=== PATIENT | female | born 1960 | race Caucasian/White ===

== ENCOUNTER 2017-05-10 15:15 | Inpatient (IN) | payer MEDICAID ==
[2017-05-10 15:54] LABS: ADD MAN DIFF? NO
[2017-05-10 15:56] LABS: WHITE BLOOD COUNT 4.9 10^3/ul (4.8-10.8)
[2017-05-10 15:56] LABS: BASOPHILS % 0.2 % (0.0-2.0); EOSINOPHILS # 0.1 10^3/ul (0.0-0.5); EOSINOPHILS % 1.8 % (0.0-7.0); HEMATOCRIT 38.2 % (37.0-47.0); HEMOGLOBIN 12.8 g/dl (12.0-16.0); LYMPHOCYTES # 2.3 10^3/ul (0.8-2.9); LYMPHOCYTES % 46.8 % (15.0-51.0); MEAN CORPUSCULAR HEMOGLOBIN 31.1 pg (29.0-33.0); MEAN CORPUSCULAR HGB CONC 33.5 g/dl (32.0-37.0); MEAN CORPUSCULAR VOLUME 92.7 fl (82.0-101.0); MEAN PLATELET VOLUME 10.4 fl (7.4-10.4); MONOCYTE # 0.3 10^3/ul (0.3-0.9); MONOCYTES % 6.7 % (0.0-11.0); NEUTROPHIL # 2.2 10^3/ul (1.6-7.5); NEUTROPHILS % 44.3 % (39.0-77.0); PLATELET COUNT 193 10^3/UL (140-415); RED BLOOD COUNT 4.12 10^6/ul (4.20-5.40)
[2017-05-10] MEDS: NITROGLYCERIN 2% 1 GM OINT PKT TD (16:04)
[2017-05-10] MEDS: morphine 4 MG/ML VIAL IV (16:04)
[2017-05-10] MEDS: ONDANSETRON 4 MG INJ IV (16:04)
[2017-05-10 16:54] LABS: ANION GAP 15 (8-16); BLOOD UREA NITROGEN 10 mg/dl (7-20); CALCIUM 9.5 mg/dl (8.4-10.2); CARBON DIOXIDE 25 mmol/L (21-31); CHLORIDE 106 mmol/L (97-110); CREATININE 0.92 mg/dl (0.44-1.00); GLUCOSE 94 mg/dl (70-220); POTASSIUM 3.8 mmol/L (3.5-5.1); SODIUM 142 mmol/L (135-144)
[2017-05-10 17:06] LABS: TROPONIN-I 0.055 ng/ml (0.00-0.12)
[2017-05-10] MEDS ORDERED: ONDANSETRON 4 MG INJ IV ×2 (18:30→20:00)
[2017-05-10] MEDS ORDERED: NACL 0.9% 3 ML SYG IV (20:00)
[2017-05-10 22:32] LABS: CREATINE KINASE 79 IU/L (23-200)
[2017-05-10 22:45] LABS: CK INDEX 0.6; CK-MB 0.51 ng/ml (0.0-2.4); TROPONIN-I 0.053 ng/ml (0.00-0.12)
[2017-05-10] MEDS: PANTOPRAZOLE (EC) 40 MG TAB PO (23:48)
[2017-05-10] MEDS: ACETAMINOPHEN 325 MG TAB PO (23:51)
[2017-05-11] MEDS: SOD CHLORIDE 0.9% 500 ML IV (04:30)
[2017-05-11 04:34] LABS: ADD MAN DIFF? NO
[2017-05-11 04:39] LABS: WHITE BLOOD COUNT 4.7 10^3/ul (4.8-10.8)
[2017-05-11 04:39] LABS: BASOPHILS % 0.4 % (0.0-2.0); EOSINOPHILS # 0.1 10^3/ul (0.0-0.5); EOSINOPHILS % 2.1 % (0.0-7.0); HEMATOCRIT 36.8 % (37.0-47.0); HEMOGLOBIN 12.3 g/dl (12.0-16.0); LYMPHOCYTES # 2.2 10^3/ul (0.8-2.9); MEAN CORPUSCULAR HGB CONC 33.4 g/dl (32.0-37.0); MEAN CORPUSCULAR VOLUME 92.7 fl (82.0-101.0); MEAN PLATELET VOLUME 10.6 fl (7.4-10.4); MONOCYTE # 0.3 10^3/ul (0.3-0.9); NEUTROPHILS % 43.1 % (39.0-77.0); PLATELET COUNT 186 10^3/UL (140-415); RED BLOOD COUNT 3.97 10^6/ul (4.20-5.40); RED CELL DISTRIBUTION WIDTH 14.2 % (11.5-14.5)
[2017-05-11 05:02] LABS: CREATINE KINASE 72 IU/L (23-200)
[2017-05-11 05:13] LABS: ALANINE AMINOTRANSFERASE 49 IU/L (13-69); ALBUMIN 4.1 g/dl (3.3-4.9); ALBUMIN/GLOBULIN RATIO 1.32; ALKALINE PHOSPHATASE 77 IU/L (42-121); ANION GAP 15 (8-16); ASPARTATE AMINO TRANSFERASE 48 IU/L (15-46); BILIRUBIN,INDIRECT 0.6 mg/dl (0-1.1); BILIRUBIN,TOTAL 0.6 mg/dl (0.2-1.3); BLOOD UREA NITROGEN 11 mg/dl (7-20); CALCIUM 9.1 mg/dl (8.4-10.2); CARBON DIOXIDE 27 mmol/L (21-31); CHLORIDE 105 mmol/L (97-110); CHOL/HDL RATIO 5.3 RATIO; CHOLESTEROL 166 mg/dl (100-200); CK INDEX 0.8; CK-MB 0.54 ng/ml (0.0-2.4); CREATININE 0.89 mg/dl (0.44-1.00); GLUCOSE 95 mg/dl (70-220); HDL CHOLESTEROL 31 mg/dl (37-92); LDL CHOLESTEROL,CALCULATED 119 mg/dl; MAGNESIUM 2.2 mg/dl (1.7-2.5); POTASSIUM 3.7 mmol/L (3.5-5.1); SODIUM 143 mmol/L (135-144); TOTAL PROTEIN 7.2 g/dl (6.1-8.1); TRIGLYCERIDES 79 mg/dl (0-149); TROPONIN-I 0.061 ng/ml (0.00-0.12)
[2017-05-11] MEDS: KETOROLAC 30 MG INJ IV (05:53)
[2017-05-11] MEDS: PANTOPRAZOLE (EC) 40 MG TAB PO ×2 (05:53→17:50)
[2017-05-11 07:27] LABS: ADD UMIC NO; UR ASCORBIC ACID 40 mg/dL (NEGATIVE); UR BILIRUBIN (Dip) NEGATIVE (NEGATIVE); UR BLOOD (Dip) NEGATIVE (NEGATIVE); UR CLARITY SLIGHTLY CLOUDY (CLEAR); UR COLOR YELLOW (YELLOW); UR GLUCOSE (Dip) NEGATIVE (NEGATIVE); UR KETONES (Dip) NEGATIVE (NEGATIVE); UR LEUKOCYTE ESTERASE (Dip) NEGATIVE Leu/ul (NEGATIVE); UR MUCUS MODERATE /HPF (NONE SEEN); UR NITRITE (Dip) NEGATIVE (NEGATIVE); UR RBC 0 /HPF (0-5); UR SPECIFIC GRAVITY (Dip) 1.025 (1.003-1.030); UR SQUAMOUS EPITHELIAL CELL FEW /HPF (FEW); UR TOTAL PROTEIN (Dip) NEGATIVE (NEGATIVE); UR UROBILINOGEN (Dip) 2+ mg/dL (NEGATIVE); UR WBC 16 /HPF (0-5)
[2017-05-11 08:52] LABS: B-TYPE NATRIURETIC PEPTIDE 680 PG/ML (0-125)
[2017-05-11 11:14] LABS: HEMOGLOBIN A1C 5.9 % (0-5.9)
[2017-05-11] MEDS: POTASSIUM CHLORIDE (SR) 20 MEQ TAB PO (12:25)
[2017-05-11] MEDS: MAGNESIUM OXIDE 400 MG TAB PO (12:25)
[2017-05-11] MEDS: TOPIRAMATE SPRINKLE 25 MG CAP PO ×2 (12:25→20:37)
[2017-05-11] MEDS: SPIRONOLACTONE 25 MG TAB PO (15:20)
[2017-05-11] MEDS: FUROSEMIDE 40 MG TAB PO (15:20)
[2017-05-11] MEDS: METOPROLOL (XL) 100 MG TAB PO (15:20)
[2017-05-11] MEDS: LOSARTAN 50 MG TAB PO (15:20)
[2017-05-11] MEDS: AMIODARONE 200 MG TAB PO ×2 (15:20→20:38)
[2017-05-11] MEDS: GABAPENTIN 300 MG CAP PO (20:33)
[2017-05-11] MEDS: NITROGLYCERIN (SL) 0.4 MG TAB SL (22:20)
[2017-05-11] MEDS: morphine 2 MG INJ IV (22:53)
[2017-05-11 23:23] LABS: ADD MAN DIFF? NO
[2017-05-11 23:31] LABS: WHITE BLOOD COUNT 6.5 10^3/ul (4.8-10.8)
[2017-05-11 23:31] LABS: BASOPHILS % 0.3 % (0.0-2.0); EOSINOPHILS # 0.1 10^3/ul (0.0-0.5); HEMOGLOBIN 13.1 g/dl (12.0-16.0); LYMPHOCYTES # 4.1 10^3/ul (0.8-2.9); LYMPHOCYTES % 63.4 % (15.0-51.0); MEAN CORPUSCULAR HEMOGLOBIN 30.8 pg (29.0-33.0); MEAN CORPUSCULAR HGB CONC 32.8 g/dl (32.0-37.0); MEAN CORPUSCULAR VOLUME 93.9 fl (82.0-101.0); MEAN PLATELET VOLUME 11.8 fl (7.4-10.4); MONOCYTE # 0.5 10^3/ul (0.3-0.9); NEUTROPHIL # 1.7 10^3/ul (1.6-7.5); NEUTROPHILS % 26.1 % (39.0-77.0); PLATELET COUNT 175 10^3/UL (140-415); RED BLOOD COUNT 4.26 10^6/ul (4.20-5.40)
[2017-05-11 23:56] LABS: POSITIVE DIFF @See below
[2017-05-12 00:03] LABS: ANION GAP 18 (8-16); BLOOD UREA NITROGEN 10 mg/dl (7-20); CALCIUM 9.5 mg/dl (8.4-10.2); CARBON DIOXIDE 23 mmol/L (21-31); CHLORIDE 105 mmol/L (97-110); CREATININE 0.99 mg/dl (0.44-1.00); GLUCOSE 111 mg/dl (70-220); MAGNESIUM 2.2 mg/dl (1.7-2.5); POTASSIUM 4.5 mmol/L (3.5-5.1); SODIUM 141 mmol/L (135-144)
[2017-05-12 00:14] LABS: TROPONIN-I 0.057 ng/ml (0.00-0.12)
[2017-05-12] MEDS: ACETAMINOPHEN 325 MG TAB PO ×2 (01:23→17:54)
[2017-05-12] MEDS: PANTOPRAZOLE (EC) 40 MG TAB PO ×2 (06:11→17:50)
[2017-05-12] MEDS: SPIRONOLACTONE 25 MG TAB PO (08:22)
[2017-05-12] MEDS: FUROSEMIDE 40 MG TAB PO (08:24)
[2017-05-12] MEDS: LOSARTAN 50 MG TAB PO (08:25)
[2017-05-12] MEDS: TOPIRAMATE SPRINKLE 25 MG CAP PO ×2 (08:37→21:57)
[2017-05-12] MEDS: MAGNESIUM OXIDE 400 MG TAB PO (08:37)
[2017-05-12] MEDS: POTASSIUM CHLORIDE (SR) 20 MEQ TAB PO (08:39)
[2017-05-12] MEDS: AMIODARONE 200 MG TAB PO ×2 (08:40→21:00)
[2017-05-12] MEDS: METOPROLOL (XL) 100 MG TAB PO (08:43)
[2017-05-12] MEDS: GABAPENTIN 300 MG CAP PO (21:57)
[2017-05-13] MEDS: PANTOPRAZOLE (EC) 40 MG TAB PO (06:09)
[2017-05-13] MEDS: POTASSIUM CHLORIDE (SR) 20 MEQ TAB PO (08:40)
[2017-05-13] MEDS: MAGNESIUM OXIDE 400 MG TAB PO (08:40)
[2017-05-13] MEDS: TOPIRAMATE SPRINKLE 25 MG CAP PO (08:40)
[2017-05-13] MEDS: LOSARTAN 50 MG TAB PO (08:41)
[2017-05-13] MEDS: FUROSEMIDE 40 MG TAB PO (08:42)
[2017-05-13] MEDS: SPIRONOLACTONE 25 MG TAB PO (08:42)
[2017-05-13] MEDS: AMIODARONE 200 MG TAB PO (08:42)
[2017-05-13] MEDS: METOPROLOL (XL) 100 MG TAB PO (08:45)
== END 2017-05-13 14:14 | disposition home or self-care (01) | DRG 313 ==
LOC: E/R 15:15 → MS4 18:03
DX: R07.89 Other chest pain (principal); B57.2 Chagas' disease (chronic) with heart involvement; I42.9 Cardiomyopathy, unspecified; F41.9 Anxiety disorder, unspecified; F43.9 Reaction to severe stress, unspecified; R73.03 Prediabetes; I10 Essential (primary) hypertension; Z95.810 Presence of automatic (implantable) cardiac defibrillator
CPT/HCPCS: 36415; 71010; 80048; 80053; 80061; 81001; 81003; 82550; 82553; 83036; 83735; 83880; 84443; 84484; 85025; 93005; 93306; 96374; 96375; 99285-25; G0378

== ENCOUNTER 2017-08-20 10:47 | Inpatient (IN) | payer OTHER, MEDICAID ==
[2017-08-20] MEDS: ONDANSETRON 4 MG INJ IV (11:16)
[2017-08-20] MEDS: morphine 4 MG/ML VIAL IV (11:16)
[2017-08-20] MEDS: ASPIRIN 325 MG TAB PO (11:16)
[2017-08-20] MEDS: LORAZEPAM 2 MG INJ IV (11:16)
[2017-08-20] MEDS: SOD CHLORIDE 0.9% 500 ML IV (11:17)
[2017-08-20] MEDS: NITROGLYCERIN 2% 1 GM OINT PKT TD (11:17)
[2017-08-20 11:20] LABS: ADD MAN DIFF? NO
[2017-08-20 11:26] LABS: BASOPHILS % 0.2 % (0.0-2.0); EOSINOPHILS # 0.1 10^3/ul (0.0-0.5); EOSINOPHILS % 0.9 % (0.0-7.0); HEMATOCRIT 38.6 % (37.0-47.0); HEMOGLOBIN 12.5 g/dl (12.0-16.0); LYMPHOCYTES # 2.9 10^3/ul (0.8-2.9); LYMPHOCYTES % 53.1 % (15.0-51.0); MEAN CORPUSCULAR HEMOGLOBIN 30.8 pg (29.0-33.0); MEAN CORPUSCULAR HGB CONC 32.4 g/dl (32.0-37.0); MEAN CORPUSCULAR VOLUME 95.1 fl (82.0-101.0); MEAN PLATELET VOLUME 10.5 fl (7.4-10.4); MONOCYTE # 0.4 10^3/ul (0.3-0.9); MONOCYTES % 7.1 % (0.0-11.0); NEUTROPHIL # 2.1 10^3/ul (1.6-7.5); NEUTROPHILS % 38.5 % (39.0-77.0); PLATELET COUNT 213 10^3/UL (140-415); RED BLOOD COUNT 4.06 10^6/ul (4.20-5.40); RED CELL DISTRIBUTION WIDTH 13.5 % (11.5-14.5)
[2017-08-20 11:26] LABS: WHITE BLOOD COUNT 5.4 10^3/ul (4.8-10.8)
[2017-08-20 11:46] LABS: ANION GAP 16 (8-16); BLOOD UREA NITROGEN 10 mg/dl (7-20); CALCIUM 9.7 mg/dl (8.4-10.2); CARBON DIOXIDE 26 mmol/L (21-31); CHLORIDE 107 mmol/L (97-110); CREATININE 0.96 mg/dl (0.44-1.00); GLUCOSE 138 mg/dl (70-220); POTASSIUM 3.9 mmol/L (3.5-5.1); SODIUM 145 mmol/L (135-144)
[2017-08-20 11:50] LABS: INR 1.04; PROTIME 13.7 Sec (11.9-14.9); PT RATIO 1.1
[2017-08-20 11:51] LABS: PARTIAL THROMBOPLASTIN TIME 30.1 Sec (25.0-35.0)
[2017-08-20 11:57] LABS: TROPONIN-I 0.034 ng/ml (0.00-0.12)
[2017-08-20 12:02] LABS: MAGNESIUM 2.1 mg/dl (1.7-2.5)
[2017-08-20] MEDS ORDERED: ONDANSETRON 4 MG INJ IV (12:30)
[2017-08-20] MEDS ORDERED: ACETAMINOPHEN 325 MG TAB PO (12:30)
[2017-08-20 18:06] LABS: CREATINE KINASE 128 IU/L (23-200)
[2017-08-20 18:19] LABS: CK INDEX 0.7; CK-MB 0.94 ng/ml (0.0-2.4); TROPONIN-I 0.044 ng/ml (0.00-0.12)
[2017-08-20 18:45] LABS: PHOSPHORUS 3.3 mg/dl (2.5-4.9)
[2017-08-20 18:45] LABS: MAGNESIUM 2.2 mg/dl (1.7-2.5)
[2017-08-20] MEDS: TOPIRAMATE SPRINKLE 25 MG CAP PO (21:00)
[2017-08-21] MEDS: GABAPENTIN 300 MG CAP PO (00:35)
[2017-08-21] MEDS: QUETIAPINE 25 MG TAB PO (00:36)
[2017-08-21] MEDS: AMIODARONE 200 MG TAB PO ×2 (00:38→09:03)
[2017-08-21 01:08] LABS: CREATINE KINASE 111 IU/L (23-200)
[2017-08-21 01:20] LABS: CK INDEX 0.7; CK-MB 0.83 ng/ml (0.0-2.4); TROPONIN-I 0.061 ng/ml (0.00-0.12)
[2017-08-21] MEDS: SOD CHLORIDE 0.9% 500 ML IV (04:19)
[2017-08-21] MEDS: PANTOPRAZOLE (EC) 40 MG TAB PO (05:28)
[2017-08-21 08:52] LABS: PHOSPHORUS 4.8 mg/dl (2.5-4.9)
[2017-08-21] MEDS: METOPROLOL (XL) 100 MG TAB PO (09:00)
[2017-08-21] MEDS: LOSARTAN 50 MG TAB PO (09:00)
[2017-08-21] MEDS: FUROSEMIDE 40 MG TAB PO (09:00)
[2017-08-21] MEDS: ENOXAPARIN 40 MG/0.4 ML SYG SC (09:00)
[2017-08-21] MEDS: TOPIRAMATE SPRINKLE 25 MG CAP PO (09:01)
[2017-08-21] MEDS: MAGNESIUM OXIDE 400 MG TAB PO (09:01)
[2017-08-21] MEDS: SPIRONOLACTONE 25 MG TAB PO (09:01)
[2017-08-21] MEDS: POTASSIUM CHLORIDE (SR) 20 MEQ TAB PO (09:01)
[2017-08-21] MEDS ORDERED: QUETIAPINE 100 MG TAB PO (21:00)
[2017-08-22] MEDS ORDERED: CITALOPRAM 20 MG TAB PO (09:00)
== END 2017-08-21 18:50 | disposition home or self-care (01) | DRG 313 ==
LOC: E/R 10:47 → TEL 12:21
DX: R07.9 Chest pain, unspecified (principal); B57.2 Chagas' disease (chronic) with heart involvement; Z95.810 Presence of automatic (implantable) cardiac defibrillator; F39 Unspecified mood [affective] disorder; F41.9 Anxiety disorder, unspecified
CPT/HCPCS: 36415; 71045; 80048; 82550; 82553; 83735; 84100; 84484; 85025; 85610; 85730; 93005; 96374; 96375; 99285-25

== ENCOUNTER 2017-08-26 15:21 | Outpatient (CLI) | payer OTHER | END 2017-08-26 17:00 | disposition home or self-care (01) | LOC: DCC 15:21 | DX: R07.9 Chest pain, unspecified (principal); F32.9 Major depressive disorder, single episode, unspecified; I42.9 Cardiomyopathy, unspecified; I10 Essential (primary) hypertension; F41.9 Anxiety disorder, unspecified; Z95.810 Presence of automatic (implantable) cardiac defibrillator | CPT/HCPCS: G0463 ==